=== PATIENT | female | born 2005 | race African-American/Black ===

== ENCOUNTER 2024-09-16 14:51 | Outpatient (CLI) | payer OTHER, SELFPAY | END 2024-09-16 14:52 | disposition home or self-care (01) | LOC: NFLDREF 09-22 22:43 | PROVIDERS: Visit Provider Nurse Practitioner | DX: R10.9 Unspecified abdominal pain (principal); R82.90 Unspecified abnormal findings in urine | CPT/HCPCS: 87086 ==

== ENCOUNTER 2024-11-17 23:40 | Emergency (ER) | payer OTHER, SELFPAY ==
[2024-11-17 23:48] VITALS: BP 113/87; PULSE 87; RESP 16; TEMP 36.4; O2SAT 97; BMI 28.3
--- NOTE | 2024-11-18 00:51 | ED.GENADULT ---
HPI - General Adult General Date Seen: 11/18/24 Chief complaint: Eye Problems Stated complaint: Fingernail scratched left eye Time Seen by Provider: 11/18/24 00:05 History of Present Illness HPI narrative: Patient is a 19-year-old, generally healthy, immunizations up-to-date, who scraped her left eye with her fingernail earlier today. She notes bleeding in the left eye. She does not have significant pain, perhaps some discomfort. She feels like her vision is little bit blurry, no photophobia. No other complaints. She does not wear contact lenses, does wear glasses. Related Data Home Medications ?Medication ?Instructions ?Recorded ?Confirmed No Known Home Medications 09/16/24 09/16/24 Allergies Allergy/AdvReac Type Severity Reaction Status Date / Time No Known Drug Allergies Allergy Verified 09/16/24 14:07 Exam Narrative: Exam Narrative: Vital signs reviewed In general, alert, nontoxic young woman. Eyes: Pupils are equal and reactive, normal light reflex, no hyphema. She has subconjunctival hemorrhage on the lower half of her left eye. No obvious foreign body or abrasion on initial exam. Extraocular movements are full. Lids are unremarkable. Globe is otherwise normal in appearance. ENT: No other facial trauma. Const: Vital Signs, click to edit/add: Vital Signs - 24 hr 11/17/24 23:48 Temperature 97.6 F Pulse Rate [Pulse Oximeter] 87 Respiratory Rate 16 Blood Pressure [Ri ght Upper Arm] 113/87 Pulse Oximetry 97 Oxygen Delivery Me thod Room Air Course Course ED Course: I placed tetracaine drops in the left eye followed by fluorescein. With the Wood's lamp, I do not see any significant abrasion. Discussed the natural course of subconjunctival hemorrhage, given that she says that she scraped her eye with her fingernail I am going to cover her with some tobramycin drops although I do not see a large corneal abrasion. Reviewed reasons to return such as worsening redness, pain, photophobia or visual problems, recommended eye follow-up but if that is not an option, can return to the ER. I also prescribed tobramycin drops from [facility]. Vital Signs Vital signs: Initial Vital Signs Temperature 97.6 F 11/17/24 23:48 Temperature Source Temporal Artery Scan 11/17/24 23:48 Pulse Rate 87 11/17/24 23:48 Respiratory Rate 16 11/17/24 23:48 Blood Pressure 113/87 11/17/24 23:48 Blood Pressure Mean 95 11/17/24 23:48 Blood Pressure Position Sitting 11/17/24 23:48 Pulse Oximetry 97 11/17/24 23:48 Oxygen Delivery Method Room Air 11/17/24 23:48 Vital Signs Temperature 97.6 F 11/17/24 23:48 Pulse Rate 87 11/17/24 23:48 Respiratory Rate 16 11/17/24 23:48 Blood Pressure 113/87 11/17/24 23:48 Pulse Oximetry 97 11/17/24 23:48 Oxygen Delivery Method Room Air 11/17/24 23:48 Temperature 97.6 F 11/17/24 23:48 Pulse Rate 87 11/17/24 23:48 Respiratory Rate 16 11/17/24 23:48 Blood Pressure 113/87 11/17/24 23:48 Pulse Oximetry 97 11/17/24 23:48 Oxygen Delivery Method Room Air 11/17/24 23:48 Discharge Plan Discharge Clinical Impression: Subconjunctival hemorrhage Patient Disposition: Home, Self-Care Condition: Stable Additional Instructions: The bleeding on the surface of your eye will improve with time, there is nothing specifically you can do to make this go away faster. I am prescribing some eye drops just in case you have a mild scrape although I do not see any serious abrasion looking at your eye here tonight. If you are developing more significant eye pain, difficulty with your vision, light sensitivity, drainage, increasing redness, or other worsening, please follow-up with an eye clinic right away. You can also return to the emergency department if needed. Tobramycin drops as prescribed. Prescriptions: No Action No Known Home Medications Follow Up/Referrals: Provider,Not a Local [Primary Care Provider, Family Practice] Stand Alone Forms: [employer] Info Instructions
== END 2024-11-18 00:59 | disposition home or self-care (01) ==
LOC: ED 11-18 00:37
PROVIDERS: Emergency Provider Emergency Medicine
DX: H11.32 Conjunctival hemorrhage, left eye (principal)
CPT/HCPCS: 99283; A9270